=== PATIENT | male | born 2000 | race Two or more races ===

== ENCOUNTER 2023-07-06 16:02 | Emergency (ER) | payer OTHER ==
[~2023-07-06] VITALS: Ht 165.1 cm; Wt 78.4 kg
[2023-07-06] MEDS ORDERED: cough medicine (16:35)
[2023-07-06 18:17] LABS: RSV AMPLIFICATION NEGATIVE (NEGATIVE)
[2023-07-06 20:47] LABS: BASO # 0.1 10^3/uL (0.0-0.2); BASO % 0.7 % (0.0-1.0); EOS # 0.4 10^3/uL (0.0-0.5); EOS % 5.1 % (0.0-3.0); HEMATOCRIT 49.8 % (42.0-52.0); HEMOGLOBIN 16.7 g/dl (13.5-17.5); LYMPH # 2.9 10^3/uL (1.5-5.0); LYMPH % 38.6 % (24.0-44.0); MEAN CORPUSCULAR HEMOGLOBIN 29.9 pg (27.0-33.0); MEAN CORPUSCULAR HGB CONC 33.5 g/dl (32.0-36.5); MEAN CORPUSCULAR VOLUME 89.1 fl (80.0-96.0); MONO # 0.4 10^3/uL (0.0-0.8); MONO % 5.4 % (2.0-8.0); NEUTROPHILS # 3.7 10^3/uL (1.5-8.5); NEUTROPHILS % 49.9 % (36.0-66.0); PLATELET COUNT, AUTOMATED 271 10^3/uL (150-450); RED BLOOD COUNT 5.59 10^6/uL (4.30-6.10); WHITE BLOOD COUNT 7.4 10^3/uL (4.0-10.0)
[2023-07-06 21:04] LABS: CK-MB VALUE MASS < 1.0 NG/ML (<3.6)
[2023-07-06 21:06] LABS: CPK CREATINE PHOSPHOKINASE 73 U/L (46-171); MB/CK RELATIVE INDEX 1.36 (< OR =4)
[2023-07-06 21:23] VITALS: BP 122/65; TEMP 97.9; O2SAT 100
== END 2023-07-06 21:28 | disposition home or self-care (01) ==
LOC: M ED 16:02
DX: B34.9 Viral infection, unspecified (principal); M94.0 Chondrocostal junction syndrome [Tietze]; R94.31 Abnormal electrocardiogram [ECG] [EKG]